=== PATIENT | male | born 1955 | race Caucasian/White ===

== ENCOUNTER → 2021-04-21 15:05 | Outpatient (ROUT) | payer MEDICARE, SELFPAY ==
[2021-04-21 15:08] LABS: Bacteria Urine None Seen
[2021-04-21 16:02] LABS: Appearance Urine UA CLEAR; Bilirubin Urine UA NEGATIVE (NEGATIVE); Color Urine UA YELLOW; Glucose Urine UA NEGATIVE (Negative); Ketones Urine UA NEGATIVE (NEGATIVE); Leukocyte Esterase Urine UA NEGATIVE (NEGATIVE); Nitrite Urine UA NEGATIVE (Negative); Occult Blood Urine UA TRACE-LYSED (Negative); Protein Urine UA NEGATIVE (Negative); Urobilinogen Urine UA 0.2 E.U./dL (0.2); pH Urine UA 6.5 (4.5-8.0)
[2021-04-21 16:16] LABS: Culture Indicated Urine Cult Not Indicated; RBC Urine 1-5/HPF (0-5/HPF); WBC Urine 0-1/HPF (0-5/HPF)
== END ==
PROVIDERS: Visit Provider Nurse Practitioner Family
DX: R35.0 Frequency of micturition (principal); R39.89 Other symptoms and signs involving the genitourinary system
CPT/HCPCS: 81001

== ENCOUNTER → 2021-06-09 07:29 | Outpatient (ROUT) | payer MEDICARE, SELFPAY ==
[2021-06-09 08:30] LABS: Add Manual Diff / Slide Review NO; Basophils Absolute Auto 100 /uL (0-100); Basophils Percent Auto 1.1 % (0-2); Eosinophils Absolute Auto 200 /uL (0-450); Eosinophils Percent Auto 2.9 % (2-4); Hemoglobin 11.2 g/dL (13.5-17.5); Lymphocytes Absolute Auto 1400 /uL (1100-4500); Lymphocytes Percent Auto 22.1 % (25-40); Mean Corpuscular HGB Conc 32.9 % (30-36); Mean Corpuscular Hemoglobin 29.8 PG (26-34); Mean Corpuscular Volume 90.4 fL (80-100); Monocytes Absolute Auto 600 /uL (0-900); Neutrophils Absolute Auto 4100 /uL (1500-7000); Neutrophils Percent Auto 64.9 % (50-75); Platelet Count 184 X10^3/uL (150-400); Red Blood Cell Count 3.76 X10^6/uL (4.5-5.9); Red Cell Distribution Width 14.2 % (11.6-14.8); White Blood Cell Count 6.3 X10^3/uL (4.5-11.0)
[2021-06-09 09:01] LABS: Alanine Aminotransferase 18 IU/L (<50); Albumin 4.2 g/dL (3.5-5.0); Albumin Globulin Ratio 1.3 (1.0-2.8); Alkaline Phosphatase 114 U/L (38-126); Aspartate Aminotransferase 25 IU/L (17-59); Bilirubin Total 0.3 mg/dL (0.2-1.3); Blood Urea Nitrogen 13 mg/dL (9-20); Calcium 9.2 mg/dL (8.4-10.2); Carbon Dioxide 30 mmol/L (22-32); Chloride 105 mmol/L (98-107); Estimated Glomerular Filt Rate > 60.0 mL/min (>60); Globulin 3.2 g/dL (1.7-4.1); Glucose 102 mg/dL (80-110); HEMOLYSIS < 15 (0-50); Potassium 3.7 mmol/L (3.4-5.1); Sodium 141 mmol/L (137-145); Total Protein 7.4 g/dL (6.3-8.2)
[2021-06-09 09:34] LABS: Thyroid Stimulating Hormone 1.36 uIU/mL (0.47-4.68)
[2021-06-09 09:50] LABS: Vitamin B12 324 pg/mL (239-931)
== END ==
PROVIDERS: Visit Provider Nurse Practitioner Family
DX: R41.0 Disorientation, unspecified (principal)
CPT/HCPCS: 36415; 80053; 82607; 84443; 85025

== ENCOUNTER → 2021-06-30 07:48 | Outpatient (ROUT) | payer MEDICARE, SELFPAY ==
[2021-06-30 08:02] LABS: Ammonia (NH3) 35 umol/L (9-30)
[2021-07-03 20:12] LABS: Levetiracetam Keppra 20.6 ug/mL (10.0-40.0)
== END ==
PROVIDERS: Visit Provider Internal Medicine
DX: G40.909 Epilepsy, unspecified, not intractable, without status epilepticus (principal); Z86.59 Personal history of other mental and behavioral disorders
CPT/HCPCS: 36415; 80177; 80185; 82140

== ENCOUNTER → 2021-07-14 08:09 | Outpatient (ROUT) | payer MEDICARE, SELFPAY ==
[2021-07-14 08:22] LABS: Ammonia (NH3) < 9 umol/L (9-30)
[2021-07-14 09:01] LABS: Phenytoin / Dilantin 26.5 ug/mL (10-20)
== END ==
PROVIDERS: Visit Provider Nurse Practitioner Family
DX: Z51.81 Encounter for therapeutic drug level monitoring (principal)
CPT/HCPCS: 36415; 80185; 82140

== ENCOUNTER → 2021-09-30 19:32 | Outpatient (ROUT) | payer MEDICARE, SELFPAY ==
[2021-10-03 09:10] LABS: COVID19 Sendout Not Detected (Not Detect)
== END ==
PROVIDERS: Visit Provider Internal Medicine
DX: Z20.822 Contact with and (suspected) exposure to COVID-19 (principal)
CPT/HCPCS: 87635

== ENCOUNTER → 2022-02-23 07:38 | Outpatient (ROUT) | payer MEDICARE, SELFPAY ==
[2022-02-23 07:50] LABS: Ammonia (NH3) < 9 umol/L (9-30)
[2022-02-23 09:10] LABS: Add Manual Diff / Slide Review NO; Basophils Absolute Auto 100 /uL (0-100); Basophils Percent Auto 1.3 % (0-2); Eosinophils Absolute Auto 100 /uL (0-450); Eosinophils Percent Auto 2.9 % (2-4); Hematocrit 32.7 % (41-53); Hemoglobin 11.1 g/dL (13.5-17.5); Lymphocytes Absolute Auto 1900 /uL (1100-4500); Lymphocytes Percent Auto 36.6 % (25-40); Mean Corpuscular Hemoglobin 29.6 PG (26-34); Mean Corpuscular Volume 86.9 fL (80-100); Monocytes Absolute Auto 400 /uL (0-900); Monocytes Percent Auto 8.5 % (3-14); Neutrophils Absolute Auto 2600 /uL (1500-7000); Neutrophils Percent Auto 50.7 % (50-75); Platelet Count 138 X10^3/uL (150-400); Red Blood Cell Count 3.76 X10^6/uL (4.5-5.9); Red Cell Distribution Width 13.6 % (11.6-14.8); White Blood Cell Count 5.1 X10^3/uL (4.5-11.0)
[2022-02-23 09:24] LABS: Alanine Aminotransferase 14 IU/L (<50); Albumin Globulin Ratio 1.2 (1.0-2.8); Alkaline Phosphatase 115 U/L (38-126); Aspartate Aminotransferase 23 IU/L (17-59); BUN Creatinine Ratio 18.8 (6-22); Bilirubin Total 0.2 mg/dL (0.2-1.3); Blood Urea Nitrogen 16 mg/dL (9-20); Calcium 8.7 mg/dL (8.4-10.2); Carbon Dioxide 26 mmol/L (22-32); Chloride 108 mmol/L (98-107); Estimated Glomerular Filt Rate > 60 mL/min (>60); Globulin 3.3 g/dL (1.7-4.1); Glucose 96 mg/dL (80-110); HEMOLYSIS < 15 (0-50); Potassium 3.8 mmol/L (3.4-5.1); Sodium 142 mmol/L (137-145); Total Protein 7.3 g/dL (6.3-8.2)
[2022-02-23 09:53] LABS: Thyroid Stimulating Hormone 1.56 uIU/mL (0.47-4.68)
[2022-02-23 10:11] LABS: Vitamin B12 325 pg/mL (239-931)
== END ==
PROVIDERS: Visit Provider Nurse Practitioner Family
DX: R41.0 Disorientation, unspecified (principal); R45.1 Restlessness and agitation; F03.90 Unspecified dementia, unspecified severity, without behavioral disturbance, psychotic disturbance, mood disturbance, and anxiety
CPT/HCPCS: 36415; 80053; 82140; 82607; 84443; 85025

== ENCOUNTER → 2022-04-07 06:03 | Outpatient (ROUT) | payer MEDICARE, SELFPAY ==
[2022-04-07 06:07] LABS: Appearance Urine UA CLEAR; Bilirubin Urine UA NEGATIVE (NEGATIVE); Glucose Urine UA NEGATIVE (Negative); Ketones Urine UA NEGATIVE (NEGATIVE); Leukocyte Esterase Urine UA NEGATIVE (NEGATIVE); Nitrite Urine UA NEGATIVE (Negative); Occult Blood Urine UA NEGATIVE (Negative); Protein Urine UA TRACE (Negative); Urobilinogen Urine UA 0.2 E.U./dL (0.2); pH Urine UA 5.5 (4.5-8.0)
[2022-04-07 06:08] LABS: Color Urine UA Dark Yellow; RBC Urine 0-1/HPF (0-5/HPF); Squamous Epithelial Cell Urine 0-1 /HPF (0-5/HPF); Transitional Epi Cells Urine 0-1/HPF (0-5/HPF); WBC Urine None Seen (0-5/HPF)
[2022-04-07 06:09] LABS: Bacteria Urine None Seen; Culture Indicated Urine Cult Not Indicated; Hyaline Casts Urine 0-1/LPF; Mucus Urine 1+ (Negative)
== END ==
PROVIDERS: Visit Provider Nurse Practitioner Family
DX: N39.498 Other specified urinary incontinence (principal)
CPT/HCPCS: 81001

== ENCOUNTER 2022-04-12 15:07 | Emergency (ER) | payer MEDICARE, MEDICAID, SELFPAY ==
[2022-04-12] VITALS (16 sets, daily range): BP systolic 133–154; BP diastolic 60–74; PULSE 79–98; RESP 18; TEMP 36.9; O2SAT 79–94
--- NOTE | 2022-04-12 15:12 | DI.RAD.S_ITS ---
PROCEDURE: XR HIP W PEL IF DONE RT 2V INDICATIONS: pain TECHNIQUE: AP pelvis with lateral view(s) of the right hip(s). COMPARISON: [facility], , HIP COMP MIN 2VW (RT), 01/17/2014, 15:26. FINDINGS: Positioning is suboptimal. Bones: Lucency in the region of the intratrochanteric right hip concerning for nondisplaced fracture. No dislocations. Pelvic ring appears intact. No suspicious bony lesions. Soft tissues: The visualized bowel gas pattern is normal. No suspicious soft tissue calcifications. Prominent stool in the colon. IMPRESSION: Positioning is suboptimal. Concern for right intertrochanteric fracture. This could be confirmed with CT bony pelvis. Prominent stool in the colon. Dictated by: Rafa Montes M.D. on 04/12/2022 at 16:12 Approved by: Rafa Montes M.D. on 04/12/2022 at 16:15
--- NOTE | 2022-04-12 15:12 | DI.RAD.S_ITS ---
PROCEDURE: XR KNEE RT 3V INDICATIONS: pain TECHNIQUE: <3> views of the knee were acquired. COMPARISON: None. FINDINGS: Bones: No fractures or dislocations. No suspicious bony lesions. Mild osteoarthritis. Soft tissues: No joint effusion. There are vascular calcifications. IMPRESSION: Mild osteoarthritis. No acute fracture or dislocation. Dictated by: Anthony Velázquez M.D. on 04/12/2022 at 15:58 Approved by: Anthony Velázquez M.D. on 04/12/2022 at 15:59
--- NOTE | 2022-04-12 19:06 | DI.CT.S_ITS ---
PROCEDURE: CT PEL WO CON INDICATIONS: hip pain TECHNIQUE: Noncontrast 3 mm axial sections acquired through the bony pelvis, with coronal and sagittal reformatting. COMPARISON: [facility], CR, XR HIP W PEL IF DONE RT 2V, 04/12/2022, 16:20. FINDINGS: Image quality: Excellent. Bones: Acute appearing mildly impacted subcapital femoral neck fracture. No hip dislocation demonstrated. Subacute appearing fracture of the right ischopubic ramus. Likely subacute fracture of the right pubic root. Soft tissues: Unremarkable. IMPRESSION: 1. Acute appearing mildly impacted subcapital right femoral neck fracture. 2. Subacute appearing right obturator ring fractures. Dictated by: Anthony Valentin M.D. on 04/12/2022 at 19:59 Approved by: Atnhony Valentin M.D. on 04/12/2022 at 20:10
--- NOTE | 2022-04-12 20:48 | ED.LOWEXIN ---
HPI - Extremity Injury (Lower) <Nina Foss PA-C - Last Filed: 04/19/22 20:31> General Chief Complaint: Extremity Injury, Lower Stated Complaint: knee pain Time Seen by Provider: 04/12/22 15:18 Source: patient Mode of arrival: Ambulatory History of Present Illness HPI Narrative: 67-year-old male with a history of dementia sent by SNF via EMS for right knee pain. Patient is at baseline mentation per the SNF staff, not interactive and unable to provide an ROS in the ED. patient's was called, per patient's , he has suffered several falls recently. She is not sure what exactly lead to today's injury. Patient's states that at baseline, he does not ambulate unassisted and needs to be supported. Related Data Previous Rx's Medication Instructions Recorded oxycodone-acetaminophen 5 mg-325 1 tab PO QID PRN pain #20 tabs 04/14/22 mg tablet (Percocet) Review of Systems <Nina Foss PA-C - Last Filed: 04/19/22 20:31> Review of Systems Narrative: ROS was unobtainable from the patient, given dementia Exam <Nina Foss PA-C - Last Filed: 04/19/22 20:31> Narrative Exam Narrative: Physical exam was limited due to patient's condition. Patient winces when right leg is moved. Right leg appears shortened and externally rotated. No visible signs of bruising. No skin lesions noted. Lungs are clear to auscultation bilaterally with normal respiratory effort. Regular rate, regular rhythm. Patient is not able to provide ROS or interactive. Patient is very arousable. Initial Vital Signs Initial Vital Signs: Vital Signs Temperature 98.5 F 04/12/22 15:08 Pulse Rate 84 04/12/22 15:08 Respiratory Rate 18 04/12/22 15:08 Blood Pressure 154/66 H 04/12/22 15:08 Pulse Oximetry 93 04/12/22 15:08 Oxygen Delivery Method 04/12/22 15:08 <Mathew Beltre MD - Last Filed: 05/01/22 07:01> Initial Vital Signs Initial Vital Signs: Vital Signs Temperature 98.5 F 04/12/22 15:08 Pulse Rate 84 04/12/22 15:08 Respiratory Rate 18 04/12/22 15:08 Blood Pressure 154/66 H 04/12/22 15:08 Pulse Oximetry 93 04/12/22 15:08 Oxygen Delivery Method 04/12/22 15:08 Course <Nina Foss PA-C - Last Filed: 04/19/22 20:31> Orders Ordered: Discontinued Medications Oxycodone/Acetaminophen (Oxycodone/Acetaminophen 5/325 Tablet) 1 tab PO NOW ONE Stop: 04/12/22 21:11 Last Admin: 04/12/22 21:16 Dose: 1 tab Documented By: DEENA Vital Signs Vital signs: Vital Signs - 8 hr 04/12/22 15:08 04/12/22 15:54 04/12/22 16:03 Temperature 98.5 F Pulse Rate 84 Respiratory Rate 18 Blood Pressure 154/66 H 147/67 H Pulse Oximetry 93 79 L Oxygen Delivery Method Room Air 04/12/22 16:30 04/12/22 16:30 04/12/22 17:00 Temperature Pulse Rate 82 Respiratory Rate Blood Pressure 145/63 H 136/63 Pulse Oximetry 91 Oxygen Delivery Method 04/12/22 17:00 04/12/22 17:30 04/12/22 17:30 Temperature Pulse Rate 86 90 Respiratory Rate 18 Blood Pressure 134/60 Pulse Oximetry 94 Oxygen Delivery Method 04/12/22 18:00 04/12/22 18:00 04/12/22 18:30 Temperature Pulse Rate 83 Respiratory Rate Blood Pressure 152/69 H 149/66 H Pulse Oximetry 92 Oxygen Delivery Method 04/12/22 18:30 04/12/22 18:57 04/12/22 19:00 Temperature Pulse Rate 79 98 H Respiratory Rate Blood Pressure 144/66 H Pulse Oximetry 92 Oxygen Delivery Method 04/12/22 19:28 04/12/22 19:30 Temperature Pulse Rate 90 84 Respiratory Rate Blood Pressure Pulse Oximetry 92 91 Oxygen Delivery Method <Mathew Beltre MD - Last Filed: 05/01/22 07:01> Orders Ordered: Discontinued Medications Oxycodone/Acetaminophen (Oxycodone/Acetaminophen 5/325 Tablet) 1 tab PO NOW ONE Stop: 04/12/22 21:11 Last Admin: 04/12/22 21:16 Dose: 1 tab Documented By: DEENA Vital Signs Vital signs: Vital Signs - 8 hr 04/12/22 15:08 04/12/22 15:54 04/12/22 16:03 Temperature 98.5 F Pulse Rate 84 Respiratory Rate 18 Blood Pressure 154/66 H 147/67 H Pulse Oximetry 93 79 L Oxygen Delivery Method Room Air 04/12/22 16:30 04/12/22 16:30 04/12/22 17:00 Temperature Pulse Rate 82 Respiratory Rate Blood Pressure 145/63 H 136/63 Pulse Oximetry 91 Oxygen Delivery Method 04/12/22 17:00 04/12/22 17:30 04/12/22 17:30 Temperature Pulse Rate 86 90 Respiratory Rate 18 Blood Pressure 134/60 Pulse Oximetry 94 Oxygen Delivery Method 04/12/22 18:00 04/12/22 18:00 04/12/22 18:30 Temperature Pulse Rate 83 Respiratory Rate Blood Pressure 152/69 H 149/66 H Pulse Oximetry 92 Oxygen Delivery Method 04/12/22 18:30 04/12/22 18:57 04/12/22 19:00 Temperature Pulse Rate 79 98 H Respiratory Rate Blood Pressure 144/66 H Pulse Oximetry 92 Oxygen Delivery Method 04/12/22 19:28 04/12/22 19:30 Temperature Pulse Rate 90 84 Respiratory Rate Blood Pressure Pulse Oximetry 92 91 Oxygen Delivery Method MDM - Extremity Injury (Lower) <Nina Foss PA-C - Last Filed: 04/19/22 20:31> Medical Records Attestation: I reviewed the patient's medical records. Lab Data Labs: Lab Results 04/12/22 Range/Units 20:30 SARS-CoV-2 (PCR) Negative (Negative) Imaging Data CT pelvis: Radiologist's Impression: PROCEDURE:? CT PEL WO CON ? INDICATIONS:? hip pain ? TECHNIQUE:? Noncontrast 3 mm axial sections acquired through the bony pelvis, with coronal and sagittal reformatting.? ? COMPARISON:? [facility], CR, XR HIP W PEL IF DONE RT 2V, 04/12/2022, 16:20. ? FINDINGS:? Image quality:? Excellent.? ? Bones:? Acute appearing mildly impacted subcapital femoral neck fracture.? No hip dislocation demonstrated.? Subacute appearing fracture of the right ischopubic ramus.? Likely subacute fracture of the right pubic root. ? Soft tissues:? Unremarkable. ? IMPRESSION:? 1. Acute appearing mildly impacted subcapital right femoral neck fracture.? 2. Subacute appearing right obturator ring fractures.? Dictated by: Anthony Valentin M.D. on 04/12/2022 at 19:59 ? ? Approved by: Anthony Valentin M.D. on 04/12/2022 at 20:10 ? Knee x-ray: Radiologist's Impression: PROCEDURE:? XR KNEE RT 3V ? INDICATIONS:? pain ? TECHNIQUE:? <3> views of the knee were acquired.? ? COMPARISON:? None. ? FINDINGS:? ? Bones:? No fractures or dislocations.? No suspicious bony lesions.? Mild osteoarthritis. ? Soft tissues:? No joint effusion.? There are vascular calcifications. ? ? IMPRESSION:? Mild osteoarthritis.? No acute fracture or dislocation. ? ? Dictated by: Anthony Velázquez M.D. on 04/12/2022 at 15:58 ? ? Approved by: Anthony Velázquez M.D. on 04/12/2022 at 15:59 ? MDM Narrative Medical decision making narrative: 67-year-old male with a history of dementia sent by SNF via EMS for right knee pain. Based on physical exam, with externally rotated and shortened right leg, suspicion for a hip fracture. X-ray and CT obtained which show Acute appearing mildly impacted subcapital right femoral neck fracture, and subacute appearing right obturator ring fractures.? Dr. Goldberg from [facility] was consulted, he recommended surgery as an option if patient was ambulating normally prior to the fall versus being confined to wheelchair. Patient's Karina Jara, who is the patient's proxy was consulted, and she elected against surgery, agrees to have patient be seen by Dr. Goldberg in his clinic for further evaluation and treatment. Patient discharged back to the SNF with a prescription for pain medication. ED return precautions were discussed with patient's . She verbalized understanding. <Mathew Beltre MD - Last Filed: 05/01/22 07:01> Lab Data Labs: Lab Results 04/12/22 Range/Units 20:30 SARS-CoV-2 (PCR) Negative (Negative) Discharge Plan Departure Patient Disposition: Home Clinical Impression: Fracture of femur Instructions: DI for Hip Fracture Activity Restrictions/Additional Instructions: You were evaluated in the ED today for leg and hip pain. Your CT shows a right hip fracture. If patient was walking unaided prior to the injury, he will need surgery to recover and be able to walk unaided again. In talking to patient's , Karina Catherine, she is the patient's next of kin, she prefers to not go the surgery route, to save the patient a lot of pain. Karina states that patient currently only walks assisted. We also discussed that the patient should follow-up with Dr. Goldberg from [facility] at [phone] for further evaluation and treatment. Patient has been given pain medication in the ED. patient will be sent home with a prescription for pain medication. Return to the ED if your symptoms worsen, you have chest pain, shortness of breath. patient initial prescription was not signed it was returned. A new prescription was provided and signed. Dr. Baxter 04/14/22 Prescriptions: New oxycodone-acetaminophen [Percocet] 5-325 mg tablet 1 tab PO QID PRN (Reason: pain) Qty: 20 0RF Referrals: Rosalva Rutledge MD [Primary Care Provider] - Visit Report Forms: Patient Portal/API <Mathew Beltre MD - Last Filed: 05/01/22 07:01> Cosign ED Attending Rossyature Attestation: I was immediately available for consultation of this patient was seen and evaluated by the APC in the department.
[2022-04-12 21:12] LABS: COVID19 -Nasal RAPID Negative (Negative)
[2022-04-12] MEDS: OXYCODONE/ACETAMINOPHEN 5/325 TABLET 1 TAB PO (21:16)
== END 2022-04-12 21:47 | disposition home or self-care (01) ==
PROVIDERS: Emergency Medicine; Emergency Provider Student in an Organized Health Care Education/Training Program; PCP Internal Medicine
DX: S72.011A Unspecified intracapsular fracture of right femur, initial encounter for closed fracture (principal); F03.90 Unspecified dementia, unspecified severity, without behavioral disturbance, psychotic disturbance, mood disturbance, and anxiety; R29.6 Repeated falls; Z20.822 Contact with and (suspected) exposure to COVID-19
CPT/HCPCS: 72192; 73502; 73562; 87635; 99283; C9803

== ENCOUNTER 2023-01-11 08:36 | Inpatient (IN) | payer MEDICARE, MEDICAID, SELFPAY ==
[2023-01-11] VITALS (10 sets, daily range): BP systolic 132–160; BP diastolic 64–77; PULSE 67–87; RESP 15–23; TEMP 35.7–36.6; O2SAT 97–99; BMI 18.6
--- NOTE | 2023-01-11 08:53 | DI.CT.S_ITS ---
PROCEDURE: CT CHEST ABD PEL W CON INDICATIONS: Sepsis TECHNIQUE: After the administration of intravenous contrast, 5 mm thick sections acquired from the lung apices to the symphysis. 5 mm coronal and sagittal reformats were performed, with additional 7 mm MIP reformats through the lungs. For radiation dose reduction, the following was used: automated exposure control, adjustment of mA and/or kV according to patient size. COMPARISON: None. FINDINGS: Image quality: Excellent. CHEST: Lungs and pleura: Moderate centrilobular emphysema. No acute airspace opacities. Minimal bilateral pleural effusions and minimal bibasilar atelectasis. Central and peripheral airways appear patent and normal in caliber. Mediastinum: Heart size is normal. No pericardial effusion. No mediastinal or hilar adenopathy by size criteria. Thoracic aorta and central pulmonary arteries are normal in size. The esophagus is markedly dilated and filled with fluid. There is thickening of the distal esophagus. There is a small hiatal hernia. Chest wall: No axillary or supraclavicular adenopathy by size criteria. Thyroid gland is unremarkable . ABDOMEN: Solid organs: Liver is normal in size and enhancement. Extensive portal venous gas throughout the liver. Gallbladder is distended. There are no calcified gallstones. There is no gallbladder wall thickening. . Biliary system is non dilated. Pancreas enhances normally. Spleen is normal in size and enhancement. No adrenal nodules. Kidneys demonstrate normal size and enhancement, without hydronephrosis. Peritoneum and bowel: Remarkably large rectal fecal impaction without an obstructing anal lesion. Markedly dilated stomach containing air. There is pneumatosis within the wall of the stomach. There is also new mature The small bowel is diffusely dilated. No free fluid or air. Nodes and vessels: No retroperitoneal or mesenteric adenopathy by size criteria. Aorta and inferior vena cava are normal in size. Miscellaneous: No ventral hernias. PELVIS: Genitourinary: Bladder wall thickness is normal. Miscellaneous: No inguinal hernias or adenopathy. Bones: No suspicious bony lesions. No vertebral body compression fractures. IMPRESSION: 1. There is a remarkably large fecal impaction which conceivably may be causing the other findings on the study. 2. There is diffuse dilatation of small and large bowel. 3. The stomach is markedly dilated and has air within the wall of the stomach. The duodenal C-loop is markedly dilated with probable air within the wall of the duodenal C loop. Findings are consistent with ischemia of these structures. 4. There is extensive portal venous gas present, consistent with bowel ischemia. 5. There is a small hiatal hernia. The distal esophagus is diffusely thickened. The esophagus is markedly dilated with extensive fluid. 6. Moderate centrilobular emphysema. 7. Minimal pleural effusions and minimal bibasilar atelectasis. Comment: Findings were discussed with Dr. Moya on 01/11/2023 at 1028 hours Dictated by: Sonu Haines M.D. on 01/11/2023 at 10:24 Approved by: Sonu Haines M.D. on 01/11/2023 at 10:35
--- NOTE | 2023-01-11 09:02 | ED.NAVMDI ---
HPI - Nausea/Vomiting/Diarrhea General Chief complaint: GI Bleed Stated complaint: Coffee ground emesis Time Seen by Provider: 01/11/23 08:44 History of Present Illness HPI Narrative: Patient brought in by ambulance from [facility]. I immediately spoke with his by phone she is aware that he is here. Patient is DNR with limited intervention. She does not want at this time any cardiac/[place]/stroke workup. She would like to look for infectious source or GI source of his symptoms. Patient is nonverbal. This is his baseline. History of stroke and vascular dementia. He is bed-bound. Is not on any blood thinners. As far she knows no recent illness. He is likely at his baseline she states. Patient will only respond to his name. He does not speak. Related Data Home Medications Medication Instructions Recorded Confirmed acetaminophen 500 mg tablet 500 mg PO TID 01/11/23 01/11/23 citalopram 20 mg tablet 20 mg PO QAM 01/11/23 01/11/23 docusate sodium 50 mg/5 mL oral 20 ml PO QAM 01/11/23 01/11/23 liquid levetiracetam 100 mg/mL oral 750 mg PO BID 01/11/23 01/11/23 solution memantine 10 mg tablet 10 mg PO QAM 01/11/23 01/11/23 oxycodone 5 mg tablet 5 mg PO Q4-6H PRN Pain (Scale 01/11/23 01/11/23 Score 1-3) phenytoin sodium extended 100 mg 200 mg PO QAM 01/11/23 01/11/23 capsule phenytoin sodium extended 100 mg 300 mg PO QPM 01/11/23 01/11/23 capsule risperidone 1 mg tablet 1 mg PO QPM 01/11/23 01/11/23 risperidone 1 mg tablet 2 mg PO QAM 01/11/23 01/11/23 Previous Rx's Medication Instructions Recorded oxycodone-acetaminophen 5 mg-325 1 tab PO QID PRN pain #20 tabs 07/21/22 mg tablet (Percocet) Allergies Allergy/AdvReac Type Severity Reaction Status Date / Time No Known Drug Allergies Allergy Verified 01/11/23 09:11 Review of Systems Review of Systems Narrative: GENERAL: negative chills, fatigue, malaise, fever, sweats. HEENT: negative sinus pain, ear pain, sore throat RESPIRATORY: negative dyspnea, cough CARDIOVASCULAR: negative chest pain, palpitations GASTROINTESTINAL: Positive nausea, vomiting, negative abdominal pain : negative dysuria, frequency, hematuria MUSCULOSKELETAL: negative muscle or bony pain SKIN: negative rash, skin lesions NEUROLOGIC: negative weakness, numbness ROS Unobtainable: All systems reviewed & are unremarkable except as noted in HPI and below Patient History Social History household members: none Smoking Status: Never smoker alcohol intake: never Exam Narrative Exam Narrative: GENERAL: in no distress, not toxic not dyspneic HEAD: Normocephalic. EYES: Pupils equal round ENT: Mucous membranes moist. NECK: Trachea midline. CARDIOVASCULAR: Regular rate and rhythm without murmurs RESPIRATORY: Clear to auscultation. Breath sounds equal bilaterally. No wheezes, rales, or rhonchi. GASTROINTESTINAL: Abdomen soft, non-tender, it is slightly distended with tympanic percussion. Bowel sounds are present. Patient does not grimace or moan on deep palpation EXTREMITIES: No gross deformities. BACK: No flank tenderness. NEURO: Patient turns his head to his name only. Does not follow instructions. Does respond to pain stimuli to pinching of the fingers bilaterally and feet bilaterally. SKIN: Warm and dry PSYCH: Not anxious, is cooperative Initial Vital Signs Initial Vital Signs: Vital Signs Temperature 96.2 F L 01/11/23 08:40 Pulse Rate 72 01/11/23 08:40 Respiratory Rate 18 01/11/23 08:40 Blood Pressure 142/64 H 01/11/23 08:40 Pulse Oximetry 97 01/11/23 08:40 Oxygen Delivery Method Room Air 01/11/23 08:40 Course Orders Ordered: Discontinued Medications Fentanyl (Fentanyl 50 Mcg/Patch) 50 mcg TOP Q72H NICHOLE Last Admin: 01/12/23 16:59 Dose: 50 mcg Documented By: PEDRO LUIS Sodium Chloride (Normal Saline 0.9%) 1,000 mls @ 150 mls/hr IV CONT NICHOLE Last Admin: 01/11/23 09:18 Dose: 150 mls/hr Documented By: JOSE Morphine Sulfate 100 mg/ (Dextrose) 100 mls @ 10 mls/hr IV TITRATE NICHOLE; Protocol Last Titration: 01/12/23 19:17 Dose: 0 mg/hr, 0 mls/hr Documented By: PEDRO LUIS Admin: 01/12/23 18:32 Dose: 5 mg/hr, 5 mls/hr Documented By: PEDRO LUIS Morphine Sulfate 100 mg/ (Dextrose) 100 mls @ 5 mls/hr IV TITRATE NICHOLE; Protocol Last Admin: 01/14/23 06:29 Dose: 7 mg/hr, 7 mls/hr Documented By: AGThi Titration: 01/14/23 06:29 Dose: 7 mg/hr, 7 mls/hr Documented By: Titration: 01/14/23 02:45 Dose: 7 mg/hr, 7 mls/hr Documented By: Titration: 01/13/23 20:00 Dose: 6 mg/hr, 6 mls/hr Documented By: Admin: 01/13/23 13:49 Dose: 5 mg/hr, 5 mls/hr Documented By: Titration: 01/13/23 13:49 Dose: 5 mg/hr, 5 mls/hr Documented By: Admin: 01/12/23 19:21 Dose: 5 mg/hr, 5 mls/hr Documented By: PEDRO LUIS Lorazepam (Lorazepam 2 Mg/Ml Inj) 1 mg IV Q2HR PRN PRN Reason: Nausea And Vomiting Last Admin: 01/14/23 14:21 Dose: 1 mg Documented By: ALONDRA Lorazepam (Lorazepam 2 Mg/Ml Oral Toshia) 1 mg PO Q1HR PRN PRN Reason: Anxiety Last Admin: 01/12/23 10:40 Dose: 1 mg Documented By: PEDRO LUIS Lorazepam (Lorazepam 2 Mg/Ml Oral Toshia) 2 mg PO Q2HR PRN PRN Reason: Anxiety Lorazepam (Lorazepam 2 Mg/Ml Oral Toshia) 2 mg PO Q2HR PRN PRN Reason: Anxiety Last Admin: 01/12/23 17:00 Dose: 2 mg Documented By: PEDRO LUIS Morphine Sulfate (Morphine 4 Mg/Ml Inj) 3 mg IV Q4HR PRN PRN Reason: Pain, Severe (7-10) Last Admin: 01/14/23 14:20 Dose: 3 mg Documented By: Admin: 01/11/23 14:55 Dose: 3 mg Documented By: MANDEEP Morphine Sulfate (Morphine 10 Mg/0.5 Ml Oral Syringe) 10 mg PO Q1HR PRN PRN Reason: Pain, Severe (7-10) Last Admin: 01/12/23 18:09 Dose: 10 mg Documented By: PEDRO LUIS Admin: 01/12/23 15:30 Dose: 10 mg Documented By: PEDRO LUIS Admin: 01/12/23 13:56 Dose: 10 mg Documented By: PEDRO LUIS Admin: 01/12/23 09:41 Dose: 10 mg Documented By: PEDRO LUIS Admin: 01/12/23 06:08 Dose: 10 mg Documented By: Admin: 01/12/23 03:08 Dose: 10 mg Documented By: Admin: 01/11/23 22:19 Dose: 10 mg Documented By: Admin: 01/11/23 19:02 Dose: 10 mg Documented By: Admin: 01/11/23 15:09 Dose: 10 mg Documented By: MANDEEP Naloxone HCl (Naloxone 0.4 Mg/Ml Vial) 0.2 mg IV Q2MIN PRN PRN Reason: Opiate Reversal Ondansetron HCl (Ondansetron 4 Mg Odt) 4 mg PO NOW ONE Stop: 01/11/23 08:54 Last Admin: 01/11/23 09:17 Dose: Not Given Documented By: AT Ondansetron HCl (Ondansetron 4 Mg/2 Ml Inj) 4 mg IV NOW ONE Stop: 01/11/23 09:09 Last Admin: 01/11/23 09:12 Dose: 4 mg Documented By: JOSE Ondansetron HCl (Ondansetron 4 Mg/2 Ml Inj) 4 mg IV Q8HR PRN PRN Reason: Nausea And Vomiting Scopolamine (Scopolamine 1 Patch) 1 patch TOP Q72H PRN PRN Reason: Secretions Last Admin: 01/12/23 10:39 Dose: 1 patch Documented By: PEDRO LUIS Sodium Chloride (Sodium Chloride 0.9% Flush) 10 ml IV PRN PRN PRN Reason: Flush Sodium Chloride (Sodium Chloride 0.9% Flush) 10 ml IV BID NICHOLE Last Admin: 01/14/23 18:26 Dose: Not Given Documented By: Admin: 01/14/23 13:31 Dose: 10 ml Documented By: Admin: 01/13/23 20:43 Dose: Not Given Documented By: Admin: 01/13/23 09:38 Dose: 10 ml Documented By: JOAQUÍN Reevaluation(s) Reevaluation #1: I did speak with , [id number], Karina, regarding results of CT scan imaging. At this time she does not not want any surgery. At this time she would like hospice consult. She would like her to be DNR DNI with comfort measures only. Time: 10:44 Vital Signs Vital signs: Vital Signs - 8 hr 01/11/23 08:40 01/11/23 09:26 01/11/23 08:40 Temperature 96.2 F L 98 F Pulse Rate 72 72 Respiratory Rate 18 Blood Pressure 142/64 H Pulse Oximetry 97 98 Oxygen Delivery Method Room Air 01/11/23 08:42 01/11/23 08:42 01/11/23 09:00 Temperature Pulse Rate 72 Respiratory Rate Blood Pressure 142/64 H 132/74 Pulse Oximetry 98 Oxygen Delivery Method 01/11/23 09:00 01/11/23 09:30 01/11/23 09:30 Temperature Pulse Rate 72 67 Respiratory Rate 23 17 Blood Pressure 149/70 H Pulse Oximetry 98 98 Oxygen Delivery Method Room Air 01/11/23 10:03 01/11/23 10:04 01/11/23 10:04 Temperature Pulse Rate 70 68 Respiratory Rate 19 16 Blood Pressure 160/65 H Pulse Oximetry 98 98 Oxygen Delivery Method Room Air 01/11/23 10:30 01/11/23 10:30 Temperature Pulse Rate 78 Respiratory Rate 15 Blood Pressure 143/67 H Pulse Oximetry 99 Oxygen Delivery Method MDM - Nausea/Vomiting/Diarrhea Lab Data 01/11/23 08:50 01/11/23 08:50 Labs: Lab Results 01/11/23 01/11/23 01/11/23 Range/Units 08:50 08:50 08:50 WBC 15.6 H (4.5-11.0) X10^3/uL RBC 4.09 L (4.5-5.9) X10^6/uL Hgb 12.0 L (13.5-17.5) g/dL Hct 36.3 L (41-53) % MCV 88.8 (80-100) fL MCH 29.4 (26-34) PG MCHC 33.1 (30-36) % RDW 13.6 (11.6-14.8) % Plt Count 199 (150-400) X10^3/uL Neut % (Auto) 90.1 H (50-75) % Lymph % (Auto) 4.5 L (25-40) % [place] % (Auto) 5.0 (3-14) % Eos % (Auto) 0.0 L (2-4) % Baso % (Auto) 0.4 (0-2) % Neut # (Auto) 93115 H (9245-2162) /uL Lymph # (Auto) 700 L (9597-1522) /uL [place] # (Auto) 800 (0-900) /uL Eos # (Auto) 0 (0-450) /uL Baso # (Auto) 100 (0-100) /uL PT 14.2 H (10.1-12.7) SECONDS INR 1.2 (0.9-1.3) APTT 30 (26-36) SECONDS Sodium 140 (137-145) mmol/L Potassium 3.6 (3.4-5.1) mmol/L Chloride 99 (98-107) mmol/L Carbon Dioxide 28 (22-32) mmol/L BUN 27 H (9-20) mg/dL Creatinine 0.61 L (0.66-1.25) mg/dL Estimated GFR > 60 (>60) mL/min BUN/Creatinine Ratio 44.3 H (6-22) Glucose 163 H (80-110) mg/dL Calcium 9.6 (8.4-10.2) mg/dL Total Bilirubin 0.3 (0.2-1.3) mg/dL AST 31 (17-59) IU/L ALT 29 (<50) IU/L Alkaline Phosphatase 99 (38-126) U/L Total Protein 8.5 H (6.3-8.2) g/dL Albumin 4.6 (3.5-5.0) g/dL Globulin 3.9 (1.7-4.1) g/dL Albumin/Globulin Ratio 1.2 (1.0-2.8) Lipase 63 (23-300) U/L Chlamy pneumoniae PCR (Not Detect) Adenovirus (PCR) (Not Detect) B. pertussis DNA (PCR) (Not Detecte) B.parapertussis DNA PCR (Not Detecte) Coronavirus OC43 (PCR) (Not Detect) Coronavirus HKU1 (PCR) (Not Detect) Coronavirus 229E (PCR) (Not Detect) SARS-CoV-2 (PCR) (Not Detecte) Coronavirus NL63 (PCR) (Not Detect) Human Metapneumovir PCR (Not Detect) Influenza Type A (PCR) (Not Detect) Influenza Type B (PCR) (Not Detect) M. pneumoniae (PCR) (Not Detect) Parainfluenza 1 (PCR) (Not Detect) Parainfluenza 2 (PCR) (Not Detect) Parainfluenza 3 (PCR) (Not Detect) Parainfluenza 4 (PCR) (Not Detect) RSV (PCR) (Not Detect) Entero/Rhino (PCR) (Not Detect) 01/11/23 Range/Units 09:17 WBC (4.5-11.0) X10^3/uL RBC (4.5-5.9) X10^6/uL Hgb (13.5-17.5) g/dL Hct (41-53) % MCV (80-100) fL MCH (26-34) PG MCHC (30-36) % RDW (11.6-14.8) % Plt Count (150-400) X10^3/uL Neut % (Auto) (50-75) % Lymph % (Auto) (25-40) % [place] % (Auto) (3-14) % Eos % (Auto) (2-4) % Baso % (Auto) (0-2) % Neut # (Auto) (5936-2526) /uL Lymph # (Auto) (7786-5298) /uL [place] # (Auto) (0-900) /uL Eos # (Auto) (0-450) /uL Baso # (Auto) (0-100) /uL PT (10.1-12.7) SECONDS INR (0.9-1.3) APTT (26-36) SECONDS Sodium (137-145) mmol/L Potassium (3.4-5.1) mmol/L Chloride (98-107) mmol/L Carbon Dioxide (22-32) mmol/L BUN (9-20) mg/dL Creatinine (0.66-1.25) mg/dL Estimated GFR (>60) mL/min BUN/Creatinine Ratio (6-22) Glucose (80-110) mg/dL Calcium (8.4-10.2) mg/dL Total Bilirubin (0.2-1.3) mg/dL AST (17-59) IU/L ALT (<50) IU/L Alkaline Phosphatase (38-126) U/L Total Protein (6.3-8.2) g/dL Albumin (3.5-5.0) g/dL Globulin (1.7-4.1) g/dL Albumin/Globulin Ratio (1.0-2.8) Lipase (23-300) U/L Chlamy pneumoniae PCR Not detected (Not Detect) Adenovirus (PCR) Not detected (Not Detect) B. pertussis DNA (PCR) Not detected (Not Detecte) B.parapertussis DNA PCR Not detected (Not Detecte) Coronavirus OC43 (PCR) Not detected (Not Detect) Coronavirus HKU1 (PCR) Not detected (Not Detect) Coronavirus 229E (PCR) Not detected (Not Detect) SARS-CoV-2 (PCR) Not detected (Not Detecte) Coronavirus NL63 (PCR) Not detected (Not Detect) Human Metapneumovir PCR Not detected (Not Detect) Influenza Type A (PCR) Not detected (Not Detect) Influenza Type B (PCR) Not detected (Not Detect) M. pneumoniae (PCR) Not detected (Not Detect) Parainfluenza 1 (PCR) Not detected (Not Detect) Parainfluenza 2 (PCR) Not detected (Not Detect) Parainfluenza 3 (PCR) Not detected (Not Detect) Parainfluenza 4 (PCR) Not detected (Not Detect) RSV (PCR) Not detected (Not Detect) Entero/Rhino (PCR) Not detected (Not Detect) Imaging Data CT scan - abdomen/pelvis: Radiologist's Impression: IMPRESSION:? ? 1. There is a remarkably large fecal impaction which conceivably may be causing the other findings on the study. ? 2. There is diffuse dilatation of small and large bowel. ? 3. The stomach is markedly dilated and has air within the wall of the stomach.? The duodenal C-loop is markedly dilated with probable air within the wall of the duodenal C loop.? Findings are consistent with ischemia of these structures. ? 4. There is extensive portal venous gas present, consistent with bowel ischemia. ? 5. There is a small hiatal hernia.? The distal esophagus is diffusely thickened.? The esophagus is markedly dilated with extensive fluid. ? 6. Moderate centrilobular emphysema. ? 7. Minimal pleural effusions and minimal bibasilar atelectasis. ? Comment: Findings were discussed with? Dr. Moya on? 01/11/2023 at 1028 hours ? ? ? Dictated by: Sonu Haines M.D. on 01/11/2023 at 10:24 ? ? Approved by: Sonu Haines M.D. on 01/11/2023 at 10:35 ? MDM Narrative Medical decision making narrative: After history and exam MDM CC: Coffee-ground emesis Complicating co-morbidities: Dementia nonverbal Data collected from: EMS senior living as well as Medical records reviewed: No recent visits here Differential considered: Includes but not limited to bowel obstruction viral gastroenteritis stroke [place] bowel perforation UTI Exam documented above, pertinent findings include: Slightly distended abdomen Lab Test results independently reviewed as above. Pertinent findings: Independently reviewed EKG as above normal sinus rhythm rate [address] elevation or depression Imaging studies independently reviewed: Consultations: 10:[address] Chacon, radiologist, CT concerning for ischemic bowel 11:07 a.m.. Spoke with hospitalist Dr. Castorena, he will admit. Dr. Gaona general surgery has not called back but at this time will not change control specialist. Treatments: Zofran normal saline Re-evaluations: No vomiting at this time. Please see notes my discussion with as well as radiologist. Discussion: Appropriate for admission for observation and comfort care. Hospice will need to be consulted. I did review with . At this time she understands gravity of situation. may be imminent. She is on her way here. Diagnosis: Ischemic bowel Discharge Plan Departure Patient Disposition: Admitted As Inpatient Clinical Impression: Acute intestinal ischemic syndrome Admit Date/Time: 01/11/23 11:07 Admit Provider: Michael Castorena
[2023-01-11 09:03] LABS: Add Manual Diff / Slide Review NO; Basophils Absolute Auto 100 /uL (0-100); Basophils Percent Auto 0.4 % (0-2); Eosinophils Absolute Auto 0 /uL (0-450); Hematocrit 36.3 % (41-53); Lymphocytes Absolute Auto 700 /uL (1100-4500); Lymphocytes Percent Auto 4.5 % (25-40); Mean Corpuscular HGB Conc 33.1 % (30-36); Mean Corpuscular Hemoglobin 29.4 PG (26-34); Mean Corpuscular Volume 88.8 fL (80-100); Monocytes Absolute Auto 800 /uL (0-900); Neutrophils Absolute Auto 14100 /uL (1500-7000); Neutrophils Percent Auto 90.1 % (50-75); Platelet Count 199 X10^3/uL (150-400); Red Blood Cell Count 4.09 X10^6/uL (4.5-5.9); Red Cell Distribution Width 13.6 % (11.6-14.8); White Blood Cell Count 15.6 X10^3/uL (4.5-11.0)
[2023-01-11 09:11] LABS: INR 1.2 (0.9-1.3); Prothrombin Time 14.2 SECONDS (10.1-12.7)
[2023-01-11] MEDS: ONDANSETRON 4 MG/2 ML INJ IV (09:12)
[2023-01-11 09:13] LABS: PTT Partial Thromboplastin Tim 30 SECONDS (26-36)
[2023-01-11] MEDS: SODIUM CHLORIDE 0.9% 1,000 ML 150 ML IV (09:18)
[2023-01-11 09:26] LABS: Alanine Aminotransferase 29 IU/L (<50); Albumin 4.6 g/dL (3.5-5.0); Albumin Globulin Ratio 1.2 (1.0-2.8); Alkaline Phosphatase 99 U/L (38-126); Aspartate Aminotransferase 31 IU/L (17-59); BUN Creatinine Ratio 44.3 (6-22); Bilirubin Total 0.3 mg/dL (0.2-1.3); Blood Urea Nitrogen 27 mg/dL (9-20); Calcium 9.6 mg/dL (8.4-10.2); Carbon Dioxide 28 mmol/L (22-32); Chloride 99 mmol/L (98-107); Estimated Glomerular Filt Rate > 60 mL/min (>60); Globulin 3.9 g/dL (1.7-4.1); Glucose 163 mg/dL (80-110); HEMOLYSIS < 15 (0-50); Lipase 63 U/L (23-300); Potassium 3.6 mmol/L (3.4-5.1); Sodium 140 mmol/L (137-145); Total Protein 8.5 g/dL (6.3-8.2)
[2023-01-11 10:13] LABS: Adenovirus Not Detected (Not Detect); B. parapertussis Not Detected (Not Detecte); Bordetella pertussis Not Detected (Not Detecte); Chlamydophila pneumoniae Not Detected (Not Detect); Coronavirus 229E Not Detected (Not Detect); Coronavirus HKU1 Not Detected (Not Detect); Coronavirus NL 63 Not Detected (Not Detect); Coronavirus OC43 Not Detected (Not Detect); Human Metapneumovirus Not Detected (Not Detect); Human Rhinovirus/Enterovirus Not Detected (Not Detect); Influenza A Not Detected (Not Detect); Influenza B Not Detected (Not Detect); Mycoplasma pneumoniae Not Detected (Not Detect); Parainfluenza Virus 1 Not Detected (Not Detect); Parainfluenza Virus 2 Not Detected (Not Detect); Parainfluenza Virus 3 Not Detected (Not Detect); Parainfluenza Virus 4 Not Detected (Not Detect); Respiratory Syncytial Virus Not Detected (Not Detect); SARS- CoV-2 Not Detected (Not Detecte)
--- NOTE | 2023-01-11 10:41 | PC.NURSE ---
Attempted straight cath with RN. Unable to advance past prostate with traditional straight cath kit.
--- NOTE | 2023-01-11 13:08 | PC.NURSE ---
Day shift: Pt in room from ED at approx 1145. He is not able to answer any questions at this time. He had a small formed BM and was cleaned up and new brief put in place. Family members in room at approx 1300. Pt shows no signs of any pain or discomfort at this time as well. VS WNL. Call light in reach. Bed alarm is on and door to room is open. Room is across from RN station. Dr Castorena and Jaz [facility] made aware that family is in room and have some questions.
[2023-01-11] MEDS: MORPHINE 4 MG/ML INJ 3 MG IV (14:55)
--- NOTE | 2023-01-11 14:59 | CM.DANOTE ---
Patient is a 67 yo male who was admitted on 01/11/23 for Bowel obstruction with perf then Code Stroke called in ED. Pt has [facility] and [facility] for insurance and his PCP is Dr. Rosalva Rutledge. EMR was reviewed. Per ED MD, pt with perf bowel obstruction, stroke, [place], vascular dementia at baseline and pt's DPOA spouse confirms DNR/DNI and does not want to pursue surgical intervention. Pt now Comfort Measures and unclear if pt will survive this admission. Awaiting H&P and hospitalist to round as pt was just admitted from ED. Per RN, pt does not appear imminent at this moment. SEGUN called [facility] and confirmed they have availability for tomorrow 01/12 in the evening and on Saturday 01/13 for [place]. SEGUN called [facility] and confirmed pt is their resident and Maria Fernanda is on vacation and Lele is covering for [facility]. SEGUN called Lele ([phone]) and updated on pt status and she is aware pt may here but if he stabilizes then likely d/c back to their facility with [facility]. Lele does not want any clinicals faxed yet today as we are still awaiting H&P and to see how pt does overnight. Lele will update her staff that pt potentially could d/c back to [facility] with Hospice tomorrow if stable. SEGUN met bedside with pt, who is not able to participate in discussion but his eyes are open but having involuntary movement with his legs, and pt's spouse/DPOA Karina and adult son. SW explained role and they confirm that pt has been a resident at [facility] for about 2 years. Pt typically does not verbally communicate at baseline since his prior stroke and vascular dementia but generally responds with facial expressions, eats a lot at baseline, and they visit pt regularly. Spouse and son both live in [place]. SW discussed Hospice services and provided [facility] brochure and the process that if pt stabilizes and is not imminent then pt would discharge with comfort care. Family confirms that if pt does not in a day or two then their preference would be for pt to d/c back to [facility] with Hospice services. Spouse states she is agreeable with [facility] referral and info visit and then will see how pt does overnight. Spouse and son somewhat shocked as pt was his typical self yesterday and now comfort care. CC Darlin kindly faxed [facility] referral and SW called and updated that referral for pt will be coming through and [facility] will review. Plan: SW to follow closely in the AM to see how pt did overnight and if pt stabilizes to coordinate plan of return to [facility] with new [facility] on board. MD may need to update POLST form as currently limited interventions. SW to keep Lele at [facility] updated on pt status and likely fax clinicals if pt stable. ERIN Wilson Discharge Planning/Care Management CM Discharge Assessment Start: 01/11/23 14:52 Freq: Status: Active Protocol: Document 01/11/23 14:52 BF (Rec: 01/11/23 14:59 BF [id number]) Discharge Planning Assessment Assigned Boat Washer ERIN Hardin DPOA/Assigned Designee Name spouse Karina Contact Information [phone] Advance Directives? No: POLST in chart Advance Directives on File Yes History Provided By Family Member,Significant Other,Medical Record Has Patient been admitted in last 30 No days? Prior Living Arrangements Assisted Living Comment [facility] resident the past 2 years Household Members none Type of transporation used prior to Relies on Others admit Facility Name Admitted From: [facility] Assisted Living Independent with ADL's No Is patient alert and oriented? No: vascular dementia Caregiver for Another No DME Already Rented / Owned Wheelchair,FWW / Walker Barriers to Discharge No Discharge Plan [facility] Transportation Arrangement may need BLS transport if pt doesn't here Referrals Initiated Other Additional Comment [facility] referral made, they have openings this week within 24-48 hrs Whiteboard Updated in Patient Room with Yes name and ext. # of Boat Washer Review Status In Process Please Provide Date Initial DC 01/11/23 Assessment Was Performed Next Review Type Continued Stay Review
[2023-01-11] MEDS: MORPHINE 10 MG/0.5 ML ORAL SYRINGE PO ×3 (15:09→22:19)
--- NOTE | 2023-01-11 15:51 | PM.HP.1 ---
History of Present Illness History of Present Illness Date Patient Seen: 01/11/23 Time Patient Seen: 15:51 Chief complaint: Coffee ground emesis Narrative: This is a 67 year old male, resident of [facility] living with H of vascular and/or alzheimer's dementia, Bipolar disorder, conversion disorder, prior CVA according to provided paperwork who was sent to the emergency room today for abdominal distension and lethargy. Unable to obtain additional history from the patient at this time given current mental status. He was found to have likely ischemic bowel with pneumatosis on CT imaging of his abdomen. Family relates that the patient is usually much more conversant and is much more lethargic than normal. Family elected for comfort care status [facility] Social History household members: none Smoking Status: Never smoker alcohol intake: never Meds Home Medications and Allergies Home Medications Medication Instructions Recorded Confirmed Type oxycodone-acetaminophen 5 mg-325 1 tab PO QID PRN pain #20 tabs 04/14/22 01/11/23 Rx mg tablet (Percocet) acetaminophen 500 mg tablet 500 mg PO TID 01/11/23 01/11/23 History citalopram 20 mg tablet 20 mg PO QAM 01/11/23 01/11/23 History docusate sodium 50 mg/5 mL oral 20 ml PO QAM 01/11/23 01/11/23 History liquid levetiracetam 100 mg/mL oral 750 mg PO BID 01/11/23 01/11/23 History solution memantine 10 mg tablet 10 mg PO QAM 01/11/23 01/11/23 History oxycodone 5 mg tablet 5 mg PO Q4-6H PRN Pain (Scale 01/11/23 01/11/23 History Score 1-3) phenytoin sodium extended 100 mg 200 mg PO QAM 01/11/23 01/11/23 History capsule phenytoin sodium extended 100 mg 300 mg PO QPM 01/11/23 01/11/23 History capsule risperidone 1 mg tablet 1 mg PO QPM 01/11/23 01/11/23 History risperidone 1 mg tablet 2 mg PO QAM 01/11/23 01/11/23 History Allergies Allergy/AdvReac Type Severity Reaction Status Date / Time No Known Drug Allergies Allergy Verified 01/11/23 09:11 Review of Systems Review of Systems Narrative: unable to perform ROS given patient's current mental status Exam Vital Signs (past 8 hours): - 01/11/23 08:40 01/11/23 09:26 01/11/23 08:40 Temperature 96.2 F L 98 F Pulse Rate 72 72 Respiratory Rate 18 Blood Pressure 142/64 H Pulse Oximetry 97 98 Oxygen Delivery Method Room Air 01/11/23 08:42 01/11/23 08:42 01/11/23 09:00 Temperature Pulse Rate 72 Respiratory Rate Blood Pressure 142/64 H 132/74 Pulse Oximetry 98 Oxygen Delivery Method 01/11/23 09:00 01/11/23 09:30 01/11/23 09:30 Temperature Pulse Rate 72 67 Respiratory Rate 23 17 Blood Pressure 149/70 H Pulse Oximetry 98 98 Oxygen Delivery Method Room Air 01/11/23 10:03 01/11/23 10:04 01/11/23 10:04 Temperature Pulse Rate 70 68 Respiratory Rate 19 16 Blood Pressure 160/65 H Pulse Oximetry 98 98 Oxygen Delivery Method Room Air 01/11/23 10:30 01/11/23 10:30 01/11/23 11:00 Temperature Pulse Rate 78 Respiratory Rate 15 Blood Pressure 143/67 H 151/72 H Pulse Oximetry 99 Oxygen Delivery Method 01/11/23 11:00 01/11/23 12:58 Temperature 97.8 F Pulse Rate 87 84 Respiratory Rate 19 20 Blood Pressure 147/77 H Pulse Oximetry 98 98 Oxygen Delivery Method Room Air Oxygen Delivery Method Room Air Narrative Exam Narrative: General: Chronically ill appearing male, no acute distress, occasional movements but not purposeful, not following commands. Occasionally opens eyes. Neck: supple and symmetric, trachea is midline, no cervical adenopathy. Negative for JVD Chest:? Normal AP diameter and contour without kyphoscoliosis, no tach visit ypnea, equal chest rise bilaterally. Lungs:? CTA b/l no wheezing rhonchi or rales. Cardio:?RRR no m/r/g. Abdomen: distended, firm, grimaces with palpation. Extremities: No edema or joint effusions. No cyanosis or clubbing. Skin:? Pale,? Warm to touch,dry and intact without rashes, ulcerations or petechiae.? Neuro: GCS 11 (see below) Objective Labs 01/11/23 08:50 01/11/23 08:50 Labs: Laboratory Results - last 24 hr 01/11/23 01/11/23 01/11/23 08:50 08:50 08:50 WBC 15.6 H RBC 4.09 L Hgb 12.0 L Hct 36.3 L MCV 88.8 MCH 29.4 MCHC 33.1 RDW 13.6 Plt Count 199 Neut % (Auto) 90.1 H Lymph % (Auto) 4.5 L [place] % (Auto) 5.0 Eos % (Auto) 0.0 L Baso % (Auto) 0.4 Neut # (Auto) 72556 H Lymph # (Auto) 700 L [place] # (Auto) 800 Eos # (Auto) 0 Baso # (Auto) 100 PT 14.2 H INR 1.2 APTT 30 Sodium 140 Potassium 3.6 Chloride 99 Carbon Dioxide 28 BUN 27 H Creatinine 0.61 L Estimated GFR > 60 BUN/Creatinine Ratio 44.3 H Glucose 163 H Calcium 9.6 Total Bilirubin 0.3 AST 31 ALT 29 Alkaline Phosphatase 99 Total Protein 8.5 H Albumin 4.6 Globulin 3.9 Albumin/Globulin Ratio 1.2 Lipase 63 Chlamy pneumoniae PCR Adenovirus (PCR) B. pertussis DNA (PCR) B.parapertussis DNA PCR Coronavirus OC43 (PCR) Coronavirus HKU1 (PCR) Coronavirus 229E (PCR) SARS-CoV-2 (PCR) Coronavirus NL63 (PCR) Human Metapneumovir PCR Influenza Type A (PCR) Influenza Type B (PCR) M. pneumoniae (PCR) Parainfluenza 1 (PCR) Parainfluenza 2 (PCR) Parainfluenza 3 (PCR) Parainfluenza 4 (PCR) RSV (PCR) Entero/Rhino (PCR) 01/11/23 09:17 WBC RBC Hgb Hct MCV MCH MCHC RDW Plt Count Neut % (Auto) Lymph % (Auto) [place] % (Auto) Eos % (Auto) Baso % (Auto) Neut # (Auto) Lymph # (Auto) [place] # (Auto) Eos # (Auto) Baso # (Auto) PT INR APTT Sodium Potassium Chloride Carbon Dioxide BUN Creatinine Estimated GFR BUN/Creatinine Ratio Glucose Calcium Total Bilirubin AST ALT Alkaline Phosphatase Total Protein Albumin Globulin Albumin/Globulin Ratio Lipase Chlamy pneumoniae PCR Not detected Adenovirus (PCR) Not detected B. pertussis DNA (PCR) Not detected B.parapertussis DNA PCR Not detected Coronavirus OC43 (PCR) Not detected Coronavirus HKU1 (PCR) Not detected Coronavirus 229E (PCR) Not detected SARS-CoV-2 (PCR) Not detected Coronavirus NL63 (PCR) Not detected Human Metapneumovir PCR Not detected Influenza Type A (PCR) Not detected Influenza Type B (PCR) Not detected M. pneumoniae (PCR) Not detected Parainfluenza 1 (PCR) Not detected Parainfluenza 2 (PCR) Not detected Parainfluenza 3 (PCR) Not detected Parainfluenza 4 (PCR) Not detected RSV (PCR) Not detected Entero/Rhino (PCR) Not detected Assessment & Plan Assessment & Plan narrative: 1. Sepsis secondary to Ischemic bowel with acute metabolic encephalopathy - after discussion with family regarding comfort measures or to proceed with surgical interventions, decision was made to persue comfort care and not undergo extensive and risky surgical operation. Given the extensiveness of his bowel ischemia, his passing is likely imminent in the next 24-48 hours. - will continue with pain control with morphine, secretions managed with scopalamine patch. - ativan prn for agitation or anxiety. - NPO, family does not wish for antibiotics or fluids which may prolong his suffering. - suspect ischemia may be related to severe obstipation that was also noted on CT imaging. 2. Dementia with bipolar disorder and conversion disorder. - ativan prn as above for agitation if needed. - will need to hold home medications given his ischemic bowel Code: DNR, surrogate is patient's parris. Dispo: Admitted as inpatient given he will likely in the next 24-48 hours. Will work on possible hospice at [facility]. He may also need morphine infusion depending on pain control given likely progression of distension and pain. I have utilized all available immediate resources to obtain, update, or review the patient's current medications. Additional history was obtained from the ER provider, as well as patient's family and spouse / son at bedside. Discussed plan of care with family, bedside RN. Personally reviewed patient's imaging and laboratory evaluation, as well as documentation from his care facility. COVID-19 COVID-19 status: Negative Scores GCS Kiersten coma scale eye opening: Spontaneous Kiersten coma scale verbal response: Sounds [place] coma scale motor response: Localising Kiersten coma scale total score: 11
[2023-01-12] MEDS: MORPHINE 10 MG/0.5 ML ORAL SYRINGE PO ×6 (03:08→18:09)
[2023-01-12 07:50] VITALS: BP 137/66; RESP 16; TEMP 36.7; O2SAT 97
--- NOTE | 2023-01-12 08:44 | CM.DPC ---
Addendum entered by Louisa Gaitan R.N. 01/13/23 10:01: Discussed patient during team rounds, he will continue on MS drip, will not be able to return to [facility], but [facility] is an option. Called them and left a message for intake, for they were supposed to review patient. Will await response. Addendum entered by Louisa Gaitan R.N. 01/12/23 15:45: Correction, Crys is from [facility], not [facility]. Patient is being given Ativan, is noting some restlessness, and sublingual MS. Completing BLS form, should he be able to go back to [facility] tomorrow. Will discuss with spouse prior, as well. Addendum entered by Louisa Gaitan R.N. 01/12/23 11:29: Crys from [facility] called back. Her direct number is: [phone]. She is having he provider review. Explained to her that the reason that referral was sent, is due to the possibility of patient needing IV Morphine, and that assisted living and long term homes can't manage this. She will have her provider review. Addendum entered by Louisa Gaitna R.N. 01/12/23 10:42: Discussed patient during team rounds. Dr. Castorena indicated, concerns about pain control, not sure if patient may need to be on MS drip, as his pain is difficult to assess due to memory and cognitive issues. Did call [facility] as back up, confirmed that they have one bed, but could be filled today. Was encouraged to go ahead and fax over the referral to the intake. The fax number is: [phone]. Faxed over face sheet, H&P, med sheets, labs. Called over at [facility]. Their phone number is: [phone]. Spoke to Danika, at [facility]. She has referral, and can have a nurse at [facility] tomorrow, Monday. Will see how patient does today. Update Manasle at [facility], that patient could possibly discharge back to [facility] tomorrow, hospitalist wants to ensure that patient has pain control. Other option is [facility], but unsure if they will have a bed tomorrow. It is noted from past conversations that [place] does take patients under their Medicaid. Addendum entered by Louisa Gaitan R.N. 01/12/23 09:37: Spoke to Wally from [facility]. She wants to ensure that patient's pain is taken care of. Noticed that patient di have some MS sublingual this morning. Asked her about patient's baseline, if he has hospital bed there, or if he is bedbound, she stated, she is not sure, she is just filling in, but will find out. Let her know that patient could potentially be ready for discharge today. Original Note: DCP Cont: Spoke to nurse, Emily, who indicated, patient is stable at this time. There are no current discharge orders, but left a message for Wally, at [facility], to ask her to call this DC Quality Assurance Analyst, since patient could possibly discharge today Patient would need BLS transport, bed bound, and notes indicate that [facility] can start evening, or Monday. Patient is not on any oxygen. P: DCP to continue to follow and work on getting patient back to [facility]. Message is out to Wally. Louisa Gaitan RN/Meat Grading Machine Operator
--- NOTE | 2023-01-12 10:10 | P.PN_ITS ---
Subjective Subjective Interval history: 67 M with ischemic bowel on comfort measures. No verbal response today, g rimacing. Exam Vital Signs (past 8 hours): - 01/12/23 07:50 Temperature 98.0 F Respiratory Rate 16 Blood Pressure 137/66 Pulse Oximetry 97 Oxygen Flow Rate 0 Oxygen Delivery Method Room Air Oxygen Flow Rate 0 Narrative Exam Narrative: General: Chronically ill appearing male, no acute distress, occasional movements but not purposeful, not following commands. Occasionally opens eyes. Neck: supple and symmetric, trachea is midline, no cervical adenopathy. Negative for JVD Chest:? Normal AP diameter and contour without kyphoscoliosis, no tach visit ypnea, equal chest rise bilaterally. Lungs:? CTA b/l no wheezing rhonchi or rales. Cardio:?RRR no m/r/g. Abdomen: distended, firm, grimaces with palpation. Extremities: No edema or joint effusions. No cyanosis or clubbing. Skin:? Pale,? Warm to touch,dry and intact without rashes, ulcerations or petechiae.? Neuro: unchanged from yesterday. Objective Labs 01/11/23 08:50 01/11/23 08:50 Labs: Laboratory Results - last 24 hr 01/11/23 09:17 Chlamy pneumoniae PCR Not detected Adenovirus (PCR) Not detected B. pertussis DNA (PCR) Not detected B.parapertussis DNA PCR Not detected Coronavirus OC43 (PCR) Not detected Coronavirus HKU1 (PCR) Not detected Coronavirus 229E (PCR) Not detected SARS-CoV-2 (PCR) Not detected Coronavirus NL63 (PCR) Not detected Human Metapneumovir PCR Not detected Influenza Type A (PCR) Not detected Influenza Type B (PCR) Not detected M. pneumoniae (PCR) Not detected Parainfluenza 1 (PCR) Not detected Parainfluenza 2 (PCR) Not detected Parainfluenza 3 (PCR) Not detected Parainfluenza 4 (PCR) Not detected RSV (PCR) Not detected Entero/Rhino (PCR) Not detected PFSH Social History household members: none Smoking Status: Never smoker alcohol intake: never Assessment & Plan Assessment & Plan narrative: 1. Sepsis secondary to Ischemic bowel with acute metabolic encephalopathy - after discussion with family regarding comfort measures or to proceed with surgical interventions, decision was made to persue comfort care and not undergo extensive and risky surgical operation. Given the extensiveness of his bowel ischemia, his passing is likely imminent in the next 24-48 hours. - will continue with pain control with morphine, secretions managed with scopalamine patch. - ativan prn for agitation or anxiety. - NPO, family does not wish for antibiotics or fluids which may prolong his suffering. - suspect ischemia may be related to severe obstipation that was also noted on CT imaging. 2. Dementia with bipolar disorder and conversion disorder. - ativan prn as above for agitation if needed. - will need to hold home medications given his ischemic bowel Code: DNR, surrogate is patient's parris. Dispo: Admitted as inpatient given he will likely in the next 24-48 hours. Will work on possible hospice at [facility]. He may also need morphine infusion depending on pain control given likely progression of distension and pain. I have utilized all available immediate resources to obtain, update, or review the patient's current medications. COVID-19 COVID-19 status: Negative
[2023-01-12] MEDS: SCOPOLAMINE 1 PATCH TOP (10:39)
[2023-01-12] MEDS: LORazepam 2 MG/ML ORAL SOL 1 MG PO (10:40)
[2023-01-12] MEDS: fentaNYL 50 MCG/PATCH TOP (16:59)
[2023-01-12] MEDS: LORazepam 2 MG/ML ORAL SOL PO (17:00)
[2023-01-12] MEDS: MORPHINE 100 MG in DEXTROSE 5 % IN WATER 90 ML IV ×2 (18:32→19:21)
[2023-01-13 07:53] VITALS: RESP 12
--- NOTE | 2023-01-13 08:23 | CM.DPC ---
Addendum entered by Louisa Gaitan R.N. 01/13/23 10:20: Confirmed with Myan at [facility] that they do not have any beds available, most likely not until next week. Addendum entered by Louisa Gaitan R.N. 01/13/23 09:12: UNIQUE Lawrence from [facility] called to check on status. She indicated that they could open patient at [facility] at 1400. Let her know that this DC Warble Saw Operator can update her, at this time is on MS drip, uncertain if he will be able to admit to [facility], but will have more of an update after team rounds. Original Note: DCP Cont: Patient is currently on MS drip, secondary to his having increased pain. Patient now sleeping, sister at bedside. Spouse will be in later today. Did not hear back from [facility], but patient could here, will discuss further at team rounds. P: DCP to continue to follow. Plan was for patient to initially return to [facility], but is currently on MS drip. Louisa Gaitan RN/Director Speech
[2023-01-13] MEDS: SODIUM CHLORIDE 0.9% FLUSH 10 ML IV (09:38)
[2023-01-13] MEDS: MORPHINE 100 MG in DEXTROSE 5 % IN WATER 90 ML IV (13:49)
--- NOTE | 2023-01-13 14:53 | P.PN_ITS ---
Subjective Subjective Interval history: 67 M with ischemic bowel on comfort measures. No verbal response today, more comfortable on morphine infusion, agonal breathing. Exam Vital Signs (past 8 hours): - 01/13/23 07:53 Respiratory Rate 12 Oxygen Delivery Method Room Air Oxygen Flow Rate 0 Narrative Exam Narrative: General: Chronically ill appearing male, no acute distress, no movements, agonal breathing. Abdomen: distended, firm, no grimacing with palpation. Extremities: No edema or joint effusions. No cyanosis or clubbing. Skin:? Pale,? Warm to touch,dry and intact without rashes, ulcerations or petechiae.? Neuro: unchanged from yesterday. Objective Labs 01/11/23 08:50 01/11/23 08:50 [facility] Social History household members: none Smoking Status: Never smoker alcohol intake: never Assessment & Plan Assessment & Plan narrative: 1. Sepsis secondary to Ischemic bowel with acute metabolic encephalopathy - after discussion with family regarding comfort measures or to proceed with surgical interventions, decision was made to persue comfort care and not undergo extensive and risky surgical operation. Given the extensiveness of his bowel ischemia, his passing is likely imminent and he is requiring morphine infusion currently to maintain pain control. - currently has fentanyl patch at 50, morphine infusion, and as needed morphine SL and ativan SL 2. Dementia with bipolar disorder and conversion disorder. - ativan prn as above for agitation if needed. - hold home medications given his ischemic bowel Code: DNR, surrogate is patient's parris. Dispo: Passing appears imminent, his breathing is agonal, he requires morphine infusion for pain control. I have utilized all available immediate resources to obtain, update, or review the patient's current medications. COVID-19 COVID-19 status: Negative
[2023-01-14] MEDS: MORPHINE 100 MG in DEXTROSE 5 % IN WATER 90 ML 7 MG IV (06:29)
[2023-01-14 09:13] VITALS: BP 90/49; PULSE 131; RESP 22; TEMP 40.3; O2SAT 86
--- NOTE | 2023-01-14 10:59 | PM.PN.1 ---
Subjective Subjective Interval history: Resting quietly with spouse in room for patient comfort. No concerns. Exam Vital Signs (past 8 hours): - 01/14/23 09:13 Temperature 104.6 F H Pulse Rate 131 H Respiratory Rate 22 Blood Pressure 90/49 L Pulse Oximetry 86 L Oxygen Flow Rate 0 Oxygen Delivery Method Room Air Oxygen Flow Rate 0 Narrative Exam Narrative: General: Chronically ill appearing male, no acute distress, no movements, agonal breathing. Abdomen: distended, firm, no grimacing with palpation. Extremities: No edema or joint effusions. No cyanosis or clubbing. Skin:? Pale,? Warm to touch,dry and intact without rashes, ulcerations or petechiae.? Objective Labs 01/11/23 08:50 01/11/23 08:50 [facility] Social History household members: none Smoking Status: Never smoker alcohol intake: never Assessment & Plan Assessment & Plan narrative: 1. Sepsis secondary to Ischemic bowel with acute metabolic encephalopathy ?- after discussion with family regarding comfort measures or to proceed with surgical interventions, decision was made to pursue comfort care and not undergo extensive and risky surgical operation. Given the extensiveness of his bowel ischemia, his passing continues to be likely imminent and he is requiring morphine infusion currently to maintain pain control. ?- currently has fentanyl patch at 50, morphine infusion, and as needed morphine SL and ativan SL 2. Dementia with bipolar disorder and conversion disorder. ?- ativan prn as above for agitation if needed. ?- hold home medications given his ischemic bowel Code: DNR, comfort care only, Surrogate is patient's Karina. DVT: Not needed due to comfort care only. Dispo: Passing appears imminent, his breathing is agonal, he requires morphine infusion for pain control.
[2023-01-14 13:00] VITALS: TEMP 38
[2023-01-14] MEDS: SODIUM CHLORIDE 0.9% FLUSH 10 ML IV (13:31)
[2023-01-14] MEDS: MORPHINE 4 MG/ML INJ 3 MG IV (14:20)
[2023-01-14] MEDS: LORazepam 2 MG/ML INJ 1 MG IV (14:21)
--- NOTE | 2023-01-14 17:19 | PM.DDS.1 ---
Discharge Summary Hospital Course Date of Admission: 01/11/23 11:07 Date of : 01/14/23 Primary care provider: Rosalva Rutledge MD Consults: 01/11/23 12:58 Consult to Discharge Planning Routine Comment: Consult to Hospice Referral Urgent Comment: Discharge provider: Dr. Jael Valdez, Hospitalist Discharge Diagnosis: Sepsis secondary to Ischemic bowel acute metabolic encephalopathy Dementia Bipolar disorder Conversion disorder History of CVA Hospital Course: This is a 67 year old male, resident of [facility] living with H of vascular and/or alzheimer's dementia, Bipolar disorder, conversion disorder, prior CVA according to provided paperwork who was sent to the emergency room for abdominal distension and lethargy. There was no ability to obtain additional history from the patient at this time given patient's mental status. He was found to have likely ischemic bowel with pneumatosis on CT imaging of his abdomen. Family related that the patient is usually much more conversant and was much more lethargic than normal. Family elected for comfort care status. This was provided. Patient passed peacefully with family member present. Objective Labs 01/11/23 08:50 01/11/23 08:50
--- NOTE | 2023-01-14 18:39 | PC.NURSE ---
0800: continues w/ comfort care. MS infusing via PIV at 7ml/hour. PIV site is patent, coban wrapped around it. patient is non-responsive, w/ eyes closed. 1400: reports patient is restless, moaning. PRN lorazepam and MS given w/ good effect. 1630: patient w/o breath or pulse. MD notified. charge nurse contacted [facility] in [place]. awaiting their arrival. postmortem care is completed.
== END 2023-01-14 17:27 | disposition expired | DRG 871 ==
LOC: ED 10:45 → AC 11:08
PROVIDERS: Admitting Provider Internal Medicine; Emergency Provider Emergency Medicine; PCP Internal Medicine; Referring Provider Emergency Medicine; Visit Provider Internal Medicine
DX: A41.9 Sepsis, unspecified organism (principal); G93.41 Metabolic encephalopathy; K55.9 Vascular disorder of intestine, unspecified; F03.90 Unspecified dementia, unspecified severity, without behavioral disturbance, psychotic disturbance, mood disturbance, and anxiety; F31.9 Bipolar disorder, unspecified; Z66 Do not resuscitate; Z20.822 Contact with and (suspected) exposure to COVID-19; Z51.5 Encounter for palliative care; R03.0 Elevated blood-pressure reading, without diagnosis of hypertension
CPT/HCPCS: 36415; 51798; 71260; 74177; 80053; 83690; 85025; 85610; 85730; 87633; 93005; 93010; 96374; 99284; J2060; J2270; J2405; Q9967